=== PATIENT | male | born 1980 ===

== ENCOUNTER 2016-10-29 22:59 | Emergency (ER) | payer SELFPAY ==
[~2016-10-29] VITALS: Ht 177.8 cm; Wt 86.4 kg
[2016-10-29] MEDS ORDERED: LIDOCAINE 2%/EPI MPF (SDV) 20 ML VIAL ONE (23:02)
[2016-10-29 23:15] VITALS: Ht 177.8 cm; Wt 86.4 kg
[2016-10-29] MEDS ORDERED: SOD CHLORIDE 0.9% 1,000 ML IV STA (23:19)
[2016-10-29] MEDS ORDERED: LORAZEPAM 2 MG INJ IV ONE (23:30)
[2016-10-29] MEDS ORDERED: LIDOCAINE 2%/EPI MPF (SDV) 20 ML VIAL INJ ONE (23:30)
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
[2016-10-30 00:47] LABS: BASOPHILS % 0.4 % (0.0-2.0); EOSINOPHILS # 0.1 10^3/ul (0.0-0.5); EOSINOPHILS % 1.4 % (0.0-7.0); HEMATOCRIT 42.2 % (42.0-52.0); HEMOGLOBIN 14.3 g/dl (14.0-18.0); LYMPHOCYTES # 1.7 10^3/ul (0.8-2.9); LYMPHOCYTES % 20.1 % (15.0-51.0); MEAN CORPUSCULAR HEMOGLOBIN 30.5 pg (29.0-33.0); MEAN CORPUSCULAR HGB CONC 33.9 g/dl (32.0-37.0); MEAN PLATELET VOLUME 9.9 fl (7.4-10.4); MONOCYTE # 0.5 10^3/ul (0.3-0.9); MONOCYTES % 5.3 % (0.0-11.0); NEUTROPHIL # 6.2 10^3/ul (1.6-7.5); NEUTROPHILS % 72.1 % (39.0-77.0); PLATELET COUNT 226 10^3/UL (140-415); RED BLOOD COUNT 4.69 10^6/ul (4.70-6.10); RED CELL DISTRIBUTION WIDTH 12.6 % (11.5-14.5); WHITE BLOOD COUNT 8.6 10^3/ul (4.8-10.8)
[2016-10-30 01:09] LABS: CALCIUM 8.8 mg/dl (8.4-10.2); CREATININE 0.71 mg/dl (0.61-1.24); POTASSIUM 3.5 mmol/L (3.5-5.1)
[2016-10-30] MEDS ORDERED: ACET325T33 PO (07:29)
[2016-10-30 08:00] VITALS: BP 118/79; PULSE 82; RESP 17; TEMP 98.3
--- NOTE | 2016-10-30 08:46 | QN ---
Documentation Comment Patient now sober, alert, appropriate, steady on his feet, ambulatory. Patient discharged. COLETTE BLACKMON MD Oct 30, 2016 08:46
== END 2016-10-30 08:01 | disposition home or self-care (01) ==
LOC: E/R 22:59
DX: S01.01XA Laceration without foreign body of scalp, initial encounter (principal); F17.210 Nicotine dependence, cigarettes, uncomplicated; R07.9 Chest pain, unspecified; Y08.89XA Assault by other specified means, initial encounter
CPT/HCPCS: 12001; 70450; 70486; 71010; 72125; 80048; 80306; 85014; 85018; 85025; 86850; 86900; 86901; 96374; 99285; J2060; J7030